=== PATIENT | female | born 1970 | race Caucasian/White ===

== ENCOUNTER 2020-05-11 09:49 | Emergency (ER) | payer OTHER, SELFPAY ==
--- NOTE | ~2020-05-11 | XR_ITS ---
EXAMINATION: XR elbow LT min 3V DATE: 05/11/2020 10:49 INDICATION: Posterior left elbow pain post fall TECHNIQUE: Anteroposterior, two oblique and lateral views of the left elbow were obtained. COMPARISON: None. FINDINGS: Alignment is normal. No fracture. 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 Normal variant supracondy lar process arising from the anteromedial cortex of the metadiaphyseal region of the distal humerus. No left elbow joint effusion. Soft tissue swelling posterior to the olecranon. IMPRESSION: 1. No left elbow joint effusion or acute osseous abnormality. Reviewed, dictated and finalized at location A. [facility] [employer]
--- NOTE | ~2020-05-11 | XR_ITS ---
EXAMINATION: XR knee RT min 4V DATE: 05/11/2020 10:49 INDICATION: Right knee pain post fall TECHNIQUE: Anteroposterior, 2 oblique, sunrise and crosstable lateral views of the right knee were ob tained COMPARISON: None. FINDINGS: Diffuse osteopenia. Nondisplaced lateral tibial plateau fracture with depression of the posterior and lateral aspect of the lateral tibial plateau and with up to 2 mm step-off at the articular cortex. N o other fractures identified. There is secondary widening of the joint space at the lateral compartme nt. Mild joint space narrowing in the medial and patellofemoral compartments with small to moderate s ize marginal osteophytes in all 3 compartments consistent with at least mild tricompartmental osteoar thritis. Small right knee joint effusion. Mild soft tissue swelling about the right knee. IMPRESSION: 1. Mild depression of a nondisplaced intra-articular fracture of the lateral tibial plateau. Reviewed, dictated and finalized at location A. SETTER IMPRESSION: 1. Mild depression of a nondisplaced intra-articular fracture of the lateral ti bial plateau.
--- NOTE | 2020-05-11 09:57 | ED.GENADULT ---
HPI - General Adult General Chief complaint: Fall Stated complaint: Fall Time Seen by Provider: 05/11/20 09:57 Source: patient Mode of arrival: ambulatory Limitations: no limitations History of Present Illness HPI narrative: 50-year-old female patient presents to the [facility] with complaints of right knee and left elbow pain. Patient states that she was walking on a tile surface yesterday where she works at doing [employer]. Patient states that they had just finished mopping the floor and thinks she might of had a wet spot and slipped and fell. Patient states that she hit her left elbow, right knee and states that she also did hit the back of her head but denies loss of consciousness. Patient denies any pain to her head. Patient states she did take some ibuprofen for the pain last night. Patient states she was able to get herself up off of the floor after she fell. Related Data Home Medications Medication Instructions Recorded Confirmed No Home Medications 05/11/20 05/11/20 Allergies Allergy/AdvReac Type Severity Reaction Status Date / Time No Known Allergies Allergy Unverified 12/13/18 17:04 Review of Systems Review of Systems: Narrative: CONSTITUTIONAL: Denies fever, chills, or sweats. EYES: Denies visual changes, redness, or discharge. ENT: Denies rhinorrhea, congestion, sore throat, or otalgia. CARDIOVASCULAR: Denies chest pain, palpitations, or edema. RESPIRATORY: Denies cough or dyspnea. GASTROINTESTINAL: Denies abdominal pain, nausea, vomiting, or diarrhea. GENITOURINARY: Denies dysuria or hematuria. SKIN: Denies rash or itching. MUSCULOSKELETAL: Denies back pain, joint pain, or myalgia. Positive left elbow and right knee pain NEUROLOGIC: Denies headache, numbness, or weakness. PSYCHIATRIC: Denies anxiety or depression. [facility] Past Medical History Medical History (Updated 05/11/20 @ 11:09 by BARTOLOME Astudillo) Anxiety Congestive heart failure COPD (chronic obstructive pulmonary disease) Depression Diabetes Endometrial ca Gout Hypercholesterolemia Hypertension Surgical History Surgical History (Updated 05/11/20 @ 10:08 by BARTOLOME Astudillo) H/O: hysterectomy Hx of cholecystectomy Social History Social History Gender identity (if verbalized by the patient): Female Comments At the time of my signature I agree with nursing past medical history, surgical, social, and family history. There is no relevant family history pertinent to the presenting complaint. Exam Narrative: Exam Narrative: GENERAL: Well-appearing, well-nourished, and in no acute distress. HEAD: Normocephalic, atraumatic. EYES: PERRLA and EOMI. ENT: Nares clear, no rhinorrhea or epistaxis. Mucous membranes moist. NECK: Supple. No lymphadenopathy CHEST: Clear to auscultation. No respiratory distress. HEART: Regular rate and rhythm. No murmur heard. Normal peripheral pulses. ABDOMEN: Soft, nontender, nondistended, normal active bowel sounds. EXTREMITIES: The L elbow is without obvious asymmetry or deformity when compared to the R elbow. No obvious surface trauma, ecchymosis or soft tissue swelling. bony tenderness to palpation of the radial head. No epicondylar or axillary lymphadenopathy. Normal flexion, extension, supination, pronation. Normal muscle strength. Intact motor and sensation of ulnar, median, and radial nerves. Patient is able to bear weight and ambulate with pain to the right knee. No surface trauma, STS, or obvious effusion. No overlying erythema or warmth. The R knee is without obvious asymmetry or deformity when compared to the L knee. Patient is able to do deep knee bend with symmetry, fully extend knee, pain with internal and external rotation. tenderness to palpation of the patella, no effusion or ballottement. No tenderness over the infrapatellar tendon. No tenderness over the medial or lateral joint lone ot the medial or lateral tibial plateaus. t
[2020-05-11 10:06] VITALS: BP 172/96; PULSE 85; RESP 16; TEMP 36.3; O2SAT 99
[2020-05-11 10:14] VITALS: BP 172/96; PULSE 85; RESP 16; TEMP 36.3; O2SAT 99
== END 2020-05-11 11:26 | disposition home or self-care (01) ==
PROVIDERS: Emergency Provider Nurse Practitioner Family; PCP Nurse Practitioner Adult Health
DX: S82.144A Nondisplaced bicondylar fracture of right tibia, initial encounter for closed fracture (principal); S82.142A Displaced bicondylar fracture of left tibia, initial encounter for closed fracture; W01.0XXA Fall on same level from slipping, tripping and stumbling without subsequent striking against object, initial encounter; M25.521 Pain in right elbow; Y99.0 Civilian activity done for income or pay; J44.9 Chronic obstructive pulmonary disease, unspecified; E78.00 Pure hypercholesterolemia, unspecified; I11.0 Hypertensive heart disease with heart failure; I50.9 Heart failure, unspecified; M10.9 Gout, unspecified; Z85.42 Personal history of malignant neoplasm of other parts of uterus
CPT/HCPCS: 73080; 73564; 99214; G0463; L1830

== ENCOUNTER 2024-03-22 09:45 | Emergency (ER) | payer OTHER, SELFPAY ==
--- NOTE | ~2024-03-22 | XR_ITS ---
XR foot LT min 3V 03/22/2024 10:19 Indication: Left foot pain. No known injury. Procedure: 4 views left foot Comparison: Comparison to multiple prior studies sequentially, with oldest reviewed study dated 09/2022. Findings: Osteopenia. Mild hallux valgus at the fifth metatarsophalangeal joint. Lisfranc joint intac t. No acute fracture, subluxation or dislocation. No significant soft tissue abnormality. No foreign bodies. There are degenerative calcaneal enthesophytes. Impression: 1: No acute bone or joint abnormality. Reviewed, dictated and finalized at location B. Impression: 1: No acute bone or joint abnormality.
[2024-03-22 09:57] VITALS: BP 141/76; PULSE 74; RESP 20; TEMP 36.6; O2SAT 100
[2024-03-22 10:05] VITALS: BP 141/76; PULSE 74; RESP 20; TEMP 36.6; O2SAT 100
--- NOTE | 2024-03-22 10:11 | ED.LOWEXIN ---
HPI - Extremity Injury (Lower) General Chief Complaint: Extremity Injury, Lower Stated Complaint: left foot pain/ear Time Seen by Provider: 03/22/24 10:02 Source: patient, family (Daughter) and RN notes reviewed Mode of arrival: wheelchair Limitations: no limitations History of Present Illness HPI Narrative: Patient presents today with daughter with complaint of left foot pain x2 days. No known injury. Patient does have history of gout. Daughter states patient's PCP took her off her gout medication due to multi organ failure?, but wanted her to come in for evaluation today due to her foot pain. Patient has a knee immobilizer on the right leg due to tibial plateau fracture. Patient states she did not have a known injury when this fracture occurred as well. Patient also reports a 2 day history right ear discomfort. Denies drainage or difficulty hearing. Related Data Home Medications Medication Instructions Recorded Confirmed albuterol sulfate 90 mcg/actuation inhalation 03/22/24 aerosol inhaler amlodipine 10 mg tablet mg 03/22/24 aspirin 81 mg chewable tablet 03/22/24 carvedilol 12.5 mg tablet mg 03/22/24 ezetimibe 10 mg tablet mg 03/22/24 famotidine 20 mg tablet mg 03/22/24 fluoxetine 10 mg capsule mg 03/22/24 fluticasone 250 mcg-salmeterol 50 inhalation 03/22/24 mcg/dose blistr powdr for inhalation (Advair Diskus) furosemide 80 mg tablet mg 03/22/24 glipizide 5 mg tablet mg 03/22/24 glipizide 5 mg tablet mg 03/22/24 losartan 100 mg tablet mg 03/22/24 losartan 25 mg tablet mg 03/22/24 sitagliptin phosphate 50 mg tablet mg 03/22/24 (Januvia) ticagrelor 90 mg tablet (Brilinta) mg 03/22/24 Allergies Allergy/AdvReac Type Severity Reaction Status Date / Time No Known Allergies Allergy Unverified 03/22/24 09:57 Review of Systems Review of Systems: CONSTITUTIONAL: Denies body aches, fever, chills, or sweats. EYES: Denies visual changes, redness, or discharge. ENT: Denies rhinorrhea, congestion, sore throat.+ right ear pain CARDIOVASCULAR: Denies chest pain, palpitations, or edema. RESPIRATORY: Denies cough or dyspnea. GASTROINTESTINAL: Denies abdominal pain, nausea, vomiting, or diarrhea. GENITOURINARY: Denies dysuria or hematuria. SKIN: Denies rash, itching, or wounds. MUSCULOSKELETAL: Denies back pain, or myalgia.+ left foot pain NEUROLOGIC: Denies headache, numbness, tingling, or weakness. PSYCH: Denies depression or anxiety. [facility] Past Medical History Medical History Anxiety Congestive heart failure COPD (chronic obstructive pulmonary disease) Depression Diabetes Endometrial ca Gout Hypercholesterolemia Hypertension Surgical History Surgical History H/O: hysterectomy Hx of cholecystectomy Social History Social History Gender identity (if verbalized by the patient): Female Comments At time of signature, I have reviewed and agree with nursing past medical, surgical, social and family history unless otherwise noted. Please see nursing chart for further information. There is no relevant family history pertinent to the presenting complaint Exam Narrative: GENERAL: Chronically ill-appearing, well-nourished, and in no acute distress. HEAD: Normocephalic, atraumatic. EYES: EOMI. No redness or drainage. Conjunctivae normal. ENT: Mucous membranes pink and moist. Right TM with moderate amount of cerumen. NECK: Normal AROM. CHEST: No respiratory distress. EXTREMITIES: Left foot: Tenderness along the dorsum of the foot distally. No erythema, ecchymosis, edema noted. Distal sensation intact. Capillary refill normal. Pedal pulse normal. Full range of motion of the ankle and all toes. SKIN: Warm, dry, no rash. Capillary refill normal. Normal skin turgor. NEURO: No focal deficits.
--- NOTE | 2024-03-22 14:34 | PC.NURSE ---
PT DECLINED ICE FOR COMFORT. PT TAKEN TO RADIOLOGY AND ROOM IN WHEELCHAIR
== END 2024-03-22 10:50 | disposition home or self-care (01) ==
PROVIDERS: Emergency Provider Nurse Practitioner
DX: M79.672 Pain in left foot (principal); I11.0 Hypertensive heart disease with heart failure; I50.9 Heart failure, unspecified; J44.9 Chronic obstructive pulmonary disease, unspecified; E11.9 Type 2 diabetes mellitus without complications; Z79.899 Other long term (current) drug therapy; Z79.82 Long term (current) use of aspirin
CPT/HCPCS: 73630; 99213; G0463